=== PATIENT | female | born 1940 | race Caucasian/White ===

== ENCOUNTER 2017-03-08 14:45 | Inpatient (IN) | payer MEDICARE, OTHER ==
[~2017-03-08] VITALS: Ht 172.7 cm; Wt 58.3 kg
[~2017-03-08 14:45] MED LIST changes: -CYCL10 PO; -Dazidox10 MG PO; -FURO40 PO; -Hair, Skin & N1 EACH PO; -METO25ER PO; -NITR.4SL SL; -Omeprazole20 M1 PO; -POTCHL20ER PO; -SERT100 PO
[2017-03-08] MEDS ORDERED: ASPI325 PO (15:16)
[2017-03-08] MEDS ORDERED: ALPR1 PO (15:16)
[2017-03-08] MEDS ORDERED: LEVSOD50 PO (15:16)
[2017-03-08] MEDS ORDERED: ATOR40TA PO (15:16)
[2017-03-08] MEDS ORDERED: MAGOXI400 PO (15:17)
[2017-03-08] MEDS ORDERED: METO25ER PO (15:17)
[2017-03-08] MEDS ORDERED: Omeprazole20 M1 PO (15:17)
[2017-03-08] MEDS ORDERED: Dazidox10 MG PO (15:18)
[2017-03-08] MEDS ORDERED: CLOP75 PO (15:18)
[2017-03-08] MEDS ORDERED: SERT100 PO (15:19)
[2017-03-08] MEDS ORDERED: LISI5 PO (15:19)
[2017-03-08 15:43] LABS: BASOPHILS ABSOLUTE AUTO 0.02 K/mm3 (0.00-0.23); BASOPHILS PERCENT AUTO 0 % (0-2); EOSINOPHILS ABSOLUTE AUTO 0.11 K/mm3 (0.00-0.68); EOSINOPHILS PERCENT AUTO 1 % (0-6); Hematocrit 34.8 % (33.0-51.0); Hemoglobin 11.1 g/dL (11.5-16.0); IMMATURE GRAN ABSOLUTE AUTO 0.03 K/mm3 (0.00-0.10); IMMATURE GRAN PERCENT AUTO 0 % (0-1); LYMPHOCYTES ABSOLUTE AUTO 1.36 K/mm3 (0.84-5.20); LYMPHOCYTES PERCENT AUTO 16 % (21-46); MONOCYTES ABSOLUTE AUTO 0.67 K/mm3 (0.16-1.47); MONOCYTES PERCENT AUTO 8 % (4-13); Mean Corpuscular HGB 29.8 pg (26.0-34.0); Mean Corpuscular HGB Conc 31.9 g/dL (31.5-36.5); Mean Corpuscular Volume 93 fL (80-100); Mean Platelet Volume 10.8 fL (9.1-12.4); NEUTROPHILS ABSOLUTE AUTO 6.13 K/mm3 (1.96-9.15); NEUTROPHILS PERCENT AUTO 74 % (41-73); Platelet Count 319 K/mm3 (150-400); RDW Coefficient Variation 13.9 % (11.7-14.2); RDW Standard Deviation 46.9 fL (35.1-46.3); Red Blood Cell Count 3.73 M/mm3 (3.80-5.20); White Blood Cell Count 8.32 K/mm3 (4.00-11.30)
[2017-03-08 16:05] LABS: Bilirubin, Total 0.5 mg/dL (0.1-1.0); Bun/Creatinine Ratio 11.8 (12.0-20.0); Calcium, Blood 9.2 mg/dL (8.5-10.1); Creatinine, Blood 1.02 mg/dL (0.40-1.00); Globulin, Blood 4.1 g/dL (2.2-4.0); Potassium, Blood 3.8 mmol/L (3.5-5.5); Total Protein, Blood 8.1 g/dL (6.4-8.2)
[2017-03-08 16:38] LABS: Troponin I 0.58 ng/mL (0.000-0.040)
[2017-03-09 04:08] LABS: BASOPHILS ABSOLUTE AUTO 0.03 K/mm3 (0.00-0.23); BASOPHILS PERCENT AUTO 0 % (0-2); EOSINOPHILS ABSOLUTE AUTO 0.17 K/mm3 (0.00-0.68); EOSINOPHILS PERCENT AUTO 2 % (0-6); Hematocrit 33.5 % (33.0-51.0); Hemoglobin 10.6 g/dL (11.5-16.0); IMMATURE GRAN ABSOLUTE AUTO 0.02 K/mm3 (0.00-0.10); IMMATURE GRAN PERCENT AUTO 0 % (0-1); LYMPHOCYTES ABSOLUTE AUTO 2.19 K/mm3 (0.84-5.20); LYMPHOCYTES PERCENT AUTO 29 % (21-46); MONOCYTES ABSOLUTE AUTO 0.69 K/mm3 (0.16-1.47); MONOCYTES PERCENT AUTO 9 % (4-13); Mean Corpuscular HGB 29.8 pg (26.0-34.0); Mean Corpuscular HGB Conc 31.6 g/dL (31.5-36.5); Mean Corpuscular Volume 94 fL (80-100); Mean Platelet Volume 10.3 fL (9.1-12.4); NEUTROPHILS PERCENT AUTO 59 % (41-73); Platelet Count 257 K/mm3 (150-400); RDW Coefficient Variation 13.9 % (11.7-14.2); RDW Standard Deviation 47.9 fL (35.1-46.3); Red Blood Cell Count 3.56 M/mm3 (3.80-5.20)
[2017-03-09 04:46] LABS: Calcium, Blood 8.2 mg/dL (8.5-10.1); Creatinine, Blood 1.13 mg/dL (0.40-1.00); Potassium, Blood 3.3 mmol/L (3.5-5.5)
[2017-03-10 05:15] LABS: BASOPHILS ABSOLUTE AUTO 0.02 K/mm3 (0.00-0.23); BASOPHILS PERCENT AUTO 0 % (0-2); EOSINOPHILS ABSOLUTE AUTO 0.15 K/mm3 (0.00-0.68); EOSINOPHILS PERCENT AUTO 2 % (0-6); Hematocrit 35.7 % (33.0-51.0); Hemoglobin 11.3 g/dL (11.5-16.0); IMMATURE GRAN ABSOLUTE AUTO 0.01 K/mm3 (0.00-0.10); IMMATURE GRAN PERCENT AUTO 0 % (0-1); LYMPHOCYTES ABSOLUTE AUTO 1.35 K/mm3 (0.84-5.20); LYMPHOCYTES PERCENT AUTO 21 % (21-46); MONOCYTES ABSOLUTE AUTO 0.54 K/mm3 (0.16-1.47); MONOCYTES PERCENT AUTO 9 % (4-13); Mean Corpuscular HGB 29.7 pg (26.0-34.0); Mean Corpuscular HGB Conc 31.7 g/dL (31.5-36.5); Mean Corpuscular Volume 94 fL (80-100); Mean Platelet Volume 10.2 fL (9.1-12.4); NEUTROPHILS ABSOLUTE AUTO 4.26 K/mm3 (1.96-9.15); NEUTROPHILS PERCENT AUTO 67 % (41-73); Platelet Count 261 K/mm3 (150-400); RDW Coefficient Variation 13.8 % (11.7-14.2); RDW Standard Deviation 47.4 fL (35.1-46.3); White Blood Cell Count 6.33 K/mm3 (4.00-11.30)
[2017-03-10 05:36] LABS: Bun/Creatinine Ratio 16.5 (12.0-20.0); Calcium, Blood 8.6 mg/dL (8.5-10.1); Creatinine, Blood 1.21 mg/dL (0.40-1.00); Potassium, Blood 4.1 mmol/L (3.5-5.5)
[2017-03-10] MEDS ORDERED: LEVO750 PO (12:29)
[2017-03-10] MEDS ORDERED: FURO40 PO (12:29)
[2017-03-10] MEDS ORDERED: POTCHL20ER PO (12:30)
[2017-03-10] MEDS ORDERED: NITR.4SL SL (12:30)
[2017-03-10] MEDS ORDERED: ALBU90OI INH (12:31)
[2017-10-19] MEDS ORDERED: CYCL10 PO (14:27)
[2017-10-19] MEDS ORDERED: Hair, Skin & N1 EACH PO (14:27)
[2017-10-19] MEDS ORDERED: CLOP75 PO (14:27)
== END 2017-03-10 13:10 | disposition home or self-care (01) | DRG 193 ==
LOC: ER 14:45 → MEDS 16:05 → ENPENDDIS 03-10 11:08 → MEDS 03-10 13:10
PROVIDERS: Emergency Medicine; Family Medicine
DX: J18.9 Pneumonia, unspecified organism (principal); I50.33 Acute on chronic diastolic (congestive) heart failure; J44.0 Chronic obstructive pulmonary disease with (acute) lower respiratory infection; J98.11 Atelectasis; Y95 Nosocomial condition; I25.10 Atherosclerotic heart disease of native coronary artery without angina pectoris; I25.2 Old myocardial infarction; I11.0 Hypertensive heart disease with heart failure; K21.9 Gastro-esophageal reflux disease without esophagitis; F41.9 Anxiety disorder, unspecified; E78.5 Hyperlipidemia, unspecified; K22.70 Barrett's esophagus without dysplasia; I73.9 Peripheral vascular disease, unspecified; I73.00 Raynaud's syndrome without gangrene; Z66 Do not resuscitate; R09.02 Hypoxemia; E03.9 Hypothyroidism, unspecified; Z95.5 Presence of coronary angioplasty implant and graft; Z95.1 Presence of aortocoronary bypass graft; Z79.82 Long term (current) use of aspirin; Z79.02 Long term (current) use of antithrombotics/antiplatelets; Z79.899 Other long term (current) drug therapy; Z87.891 Personal history of nicotine dependence; E87.6 Hypokalemia; Z88.8 Allergy status to other drugs, medicaments and biological substances
CPT/HCPCS: 36415; 71046; 80048; 80053; 82550; 83605; 83880; 84439; 84443; 84484; 85025; 85379; 87040; 87070; 87205; 93005; 93010; 96365; 99285; J0456; J0692; J1650; J7030; J7050

== ENCOUNTER → 2017-03-08 | Outpatient (CLI) | payer MEDICARE, OTHER ==
[~2017-03-08] MED LIST: ACET500; ALBU90OI INH; ALPR1 PO; AMLO5 PO; ASPI325 PO; ATOR40TA PO; CENTRUM SILVER1 EAC2 PO; CITA20 PO; CLOP75 PO; CYCL10 PO; Calcarb 600 W-1 EACH PO; Dazidox10 MG PO; Ensure Plus237 ML PO; FIBE4P PO; FISH OIL 1,0001 EAC1 PO; FURO40 PO; Fish Oil500 M1 PO; GUAI600T33 PO; Hair, Skin & N1 EACH PO; LAVAP17G PO; LEVO750 PO; LEVSOD100 PO; LEVSOD50 PO; LISI5 PO; MAGOXI400 PO; METO25 PO; METO25ER PO; NIFE30ER PO; NITR.4SL SL; Nitroglycerin0.4 MG SL; OMEP40CA12 PO; OMEPRAZOLE MAGN20 MG PO; OXYC10ER PO; OXYC10TA19; OXYC10TA19 PO; Omeprazole20 M1 PO; POTCHL20ER PO; RANI150 PO; SACC250C PO; SERT100 PO; SERT50 PO; TIOT18 INH; Vitamin D2000 UNIT PO
[2017-03-08 13:58] LABS: BASOPHILS ABSOLUTE AUTO 0.05 K/mm3 (0.00-0.23); BASOPHILS PERCENT AUTO 1 % (0-2); EOSINOPHILS ABSOLUTE AUTO 0.12 K/mm3 (0.00-0.68); EOSINOPHILS PERCENT AUTO 1 % (0-6); Hematocrit 33.9 % (33.0-51.0); Hemoglobin 11.1 g/dL (11.5-16.0); IMMATURE GRAN ABSOLUTE AUTO 0.05 K/mm3 (0.00-0.10); IMMATURE GRAN PERCENT AUTO 1 % (0-1); LYMPHOCYTES ABSOLUTE AUTO 1.17 K/mm3 (0.84-5.20); LYMPHOCYTES PERCENT AUTO 14 % (21-46); MONOCYTES ABSOLUTE AUTO 0.63 K/mm3 (0.16-1.47); MONOCYTES PERCENT AUTO 7 % (4-13); Mean Corpuscular HGB 30.5 pg (26.0-34.0); Mean Corpuscular HGB Conc 32.7 g/dL (31.5-36.5); Mean Corpuscular Volume 93 fL (80-100); Mean Platelet Volume 10.5 fL (9.1-12.4); NEUTROPHILS ABSOLUTE AUTO 6.67 K/mm3 (1.96-9.15); NEUTROPHILS PERCENT AUTO 77 % (41-73); Platelet Count 273 K/mm3 (150-400); RDW Coefficient Variation 13.6 % (11.7-14.2); RDW Standard Deviation 45.9 fL (35.1-46.3); Red Blood Cell Count 3.64 M/mm3 (3.80-5.20); White Blood Cell Count 8.69 K/mm3 (4.00-11.30)
[2017-03-08 14:19] LABS: Bun/Creatinine Ratio 10.5 (12.0-20.0); Calcium, Blood 9.6 mg/dL (8.5-10.1); Creatinine, Blood 1.14 mg/dL (0.40-1.00); Free Thyroxine 1.18 ng/dL (0.70-1.60); Potassium, Blood 4.4 mmol/L (3.5-5.5); Thyroid Stimulating Hormone 5.414 uIU/mL (0.360-4.800); Troponin I 0.577 ng/mL (0.000-0.040)
== END ==
LOC: LAB SHORT 13:54
PROVIDERS: General Practice
DX: R06.02 Shortness of breath (principal); R53.81 Other malaise
CPT/HCPCS: 80048; 82550; 83880; 84439; 84443; 84484; 85025

== ENCOUNTER 2017-10-27 08:05 | Day surgery (SDC) | payer MEDICARE, OTHER ==
[~2017-10-27] VITALS: Ht 172.7 cm; Wt 57.1 kg
[~2017-10-27 08:05] MED LIST changes: +CYCL10 PO; +Dazidox10 MG PO; +FURO40 PO; +Hair, Skin & N1 EACH PO; +METO25ER PO; +NITR.4SL SL; +Omeprazole20 M1 PO; +POTCHL20ER PO; +SERT100 PO
[2017-10-27 10:36] LABS: BASOPHILS ABSOLUTE AUTO 0.02 K/mm3 (0.00-0.23); BASOPHILS PERCENT AUTO 0 % (0-2); EOSINOPHILS ABSOLUTE AUTO 0.12 K/mm3 (0.00-0.68); EOSINOPHILS PERCENT AUTO 2 % (0-6); Hematocrit 37.4 % (33.0-51.0); Hemoglobin 12.1 g/dL (11.5-16.0); IMMATURE GRAN ABSOLUTE AUTO 0.02 K/mm3 (0.00-0.10); IMMATURE GRAN PERCENT AUTO 0 % (0-1); LYMPHOCYTES ABSOLUTE AUTO 1.73 K/mm3 (0.84-5.20); LYMPHOCYTES PERCENT AUTO 28 % (21-46); MONOCYTES ABSOLUTE AUTO 0.46 K/mm3 (0.16-1.47); MONOCYTES PERCENT AUTO 8 % (4-13); Mean Corpuscular HGB 30.3 pg (26.0-34.0); Mean Corpuscular HGB Conc 32.4 g/dL (31.5-36.5); Mean Corpuscular Volume 94 fL (80-100); Mean Platelet Volume 10.4 fL (9.1-12.4); NEUTROPHILS ABSOLUTE AUTO 3.74 K/mm3 (1.96-9.15); NEUTROPHILS PERCENT AUTO 61 % (41-73); Platelet Count 223 K/mm3 (150-400); RDW Coefficient Variation 12.5 % (11.7-14.2); RDW Standard Deviation 43.2 fL (35.1-46.3); White Blood Cell Count 6.09 K/mm3 (4.00-11.30)
== END 2017-10-27 22:43 | disposition home or self-care (01) ==
LOC: ORSCMMR 08:05 → ORD 09:00 → ORSCMMR 09:00
PROVIDERS: Surgery
PROC: 0WUF0JZ Supplement Abdominal Wall with Synthetic Substitute, Open Approach (ICD-10-PCS; principal; 2017-10-27 09:00)
DX: K43.9 Ventral hernia without obstruction or gangrene (principal); I12.9 Hypertensive chronic kidney disease with stage 1 through stage 4 chronic kidney disease, or unspecified chronic kidney disease; N18.3 Chronic kidney disease, stage 3 (moderate); E03.9 Hypothyroidism, unspecified; E78.5 Hyperlipidemia, unspecified; F41.8 Other specified anxiety disorders; J44.9 Chronic obstructive pulmonary disease, unspecified; I25.10 Atherosclerotic heart disease of native coronary artery without angina pectoris; Z87.891 Personal history of nicotine dependence; Z79.01 Long term (current) use of anticoagulants; Z79.82 Long term (current) use of aspirin; Z79.899 Other long term (current) drug therapy
CPT/HCPCS: 85025; C1781; J0690; J1100; J1885; J2250; J2405; J3010; J7030; J7120

== ENCOUNTER 2018-03-04 00:49 | Day surgery (SDC) | payer MEDICARE, OTHER ==
[~2018-03-04] VITALS: Ht 172.7 cm; Wt 56.0 kg
[~2018-03-04 00:49] MED LIST changes: +ALBU90OI61 INH; +CHOL10002 PO; +NIFE60ER PO
--- NOTE | 2018-03-04 12:30 | NUR ---
MEDICATION: I WAS CHECKING ON PT I SAW THE PT'S SPOUSE HAND HER SOMETHING AND THE PT TOOK IT PO WITH WATER. I ASKED WHAT THE PT WAS TAKING AND SHE STATED: "A PAIN PILL THAT IS PRESCIBED TO ME THAT I CAN TAKE 5 TIMES DAILY". I ASKED THAT SHE NOT TAKE ANY OTHER HOME MEDICATIONS AND ASK IF SHE NEEDED SOMETHING FOR PAIN WE HAD MEDICATIONS AVAILABLE. 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
--- NOTE | 2018-03-04 15:31 | NUR ---
DISCHARGE 1440 DR. GREGG IN TO SEE PT. 1530 PT REMAINED A&OX3 AND DENIED ANY PAIN OTHER THAN A LITTLE DISCOMFORT IN HER BACK RELIEVED BY REPOSITIONING WITH ASSISTANCE. BILATERAL GROIN SITES REMIAINS CDI-NO HEMATOMA NOTED. IV DC'D WITH TIP IN TACT. PT UP TO RESTROOM WITH SBA HELP-STEADY GAIT. PT ABLE TO DRESS SELF WITH LITTLE ASSISTANCE FROM HER SPOUSE. DISCHARG PAPERWORK GONE OVER WITH PT AND SPOUSE. PT AND SPOUSE STATED THE UNDERSTANDING OF THE DISCHARGE EDUCATION AND DENIED ANY QUESTIONS AT THIS TIME. PAPERWORK PLACED IN PT'S PROCEDURE BINDER. PT WHEELED OUT BY THIS NURSE TO PERSONAL CAR.
== END 2018-03-04 15:30 | disposition home or self-care (01) ==
LOC: MHTC 00:49
DX: I73.9 Peripheral vascular disease, unspecified (principal); Z88.8 Allergy status to other drugs, medicaments and biological substances
CPT/HCPCS: 37220; 37226; 75625; 75710; 75716; 76937; 85347; 99152; 99153; C1725; C1760; C1769; C1876; C1887; C1894; C2623; J1644; J2250; J3010; J7030; J7040; Q9967

== ENCOUNTER 2018-04-07 10:54 | Observation (INO) | payer MEDICARE, OTHER ==
[~2018-04-07] VITALS: Ht 172.7 cm; Wt 59.4 kg
--- NOTE | 2018-04-07 18:05 | NUR ---
NURSING PCU DAYSHIFT SUMMARY: Assumed care of pt at approx 1720. Arrived from via bed accompanied by RN and tech, s/o at bedside. Pt oriented to unit and recovery plan discussed, pt and s/o verbalized understanding. Pt is resting comfortably at this time, HOB 30 degrees, LUE in sling. L femoral access site appears stable, dressing intact, LUE dressing site saturated w/blood at time of arrival, no noted change, areas remain soft. Pt and s/o deny any questions needs at this time. PIV x2, s/l. Plan for discharge home in the a.m. Call light reamins in reach. Cont to monitor until rpt is given to ALECIA RN.
[2018-04-08 04:35] LABS: Hematocrit 25.1 % (33.0-51.0); Mean Corpuscular HGB 30.2 pg (26.0-34.0); Mean Corpuscular HGB Conc 31.9 g/dL (31.5-36.5); Mean Corpuscular Volume 95 fL (80-100); Mean Platelet Volume 9.5 fL (9.1-12.4); Platelet Count 155 K/mm3 (150-400); RDW Coefficient Variation 13.2 % (11.7-14.2); RDW Standard Deviation 45.7 fL (35.1-46.3); Red Blood Cell Count 2.65 M/mm3 (3.80-5.20); White Blood Cell Count 8.54 K/mm3 (4.00-11.30)
--- NOTE | 2018-04-08 06:59 | NUR ---
SHIFT SUMMARY PATIENT PLEASENT THROUGHOUT THE NIGHT. PATIENT EDUCATED ON IMPORTANCE OF POST PROCEDURES ACTIVITY AND MOVEMENT RESTRICTIONS, HOWEVER PATIENT WAS NOT VERY COMPLIENT AND NEEDED FREQUENT REMINDERS THROUGHOUT THE NIGHT. PATIENT UP TO THE BSC X 1 BUT STATED THAT SHE FELT EXTREMALLY WEAK AFTER. PATIENT USED THE BEDPAN THROUGHOUT THE REST OF THE NIGHT. REPORT GIVEN TO ONCOMING RN
--- NOTE | 2018-04-08 07:29 | NUR ---
NURSING PCU DAYSHIFT: Assumed care of pt at approx 0700. A/O, pleasant, fairly cooperative w/care. Denies any pain. Skin is fairly intact w/insertion sites present in LUE and L groin r/t peripheral procedure, sites appear stable w/mild brusing, no bleed or hematoma noted, L arm soft sling in place. 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 Tele in place, NSR w/PVC's, no c/o CP/pressure, BP stable, no noted edema. L/S cta t/o, O2 sat upper 90's on RA, denies dyspnea, no noted cough. Abd SNT, BT+, voiding w/o difficulty per pt. PIV x2, s/l. No s/s of acute distress at this time. Pt is anticpating discharge home. Awaiting rounding from woodworking machine feeder, call light in reach, cont to monitor for any changes.
--- NOTE | 2018-04-08 12:55 | NUR ---
NURSING PCU DISCHARGE SUMMARY: No acute changes noted t/o the shift. Seen by photographic platemaker, discharge home d/o received. Pt and spouse verbalized understanding of all written and verbal discharge instructions provided by photographic platemaker and RN. PIV's dc'd w/caths intact, will escort from the unit via w/c accompanied by escort services. Cont to monitor until discharge is completed.
== END 2018-04-08 12:58 | disposition home or self-care (01) ==
LOC: MHTC 10:54 → PCU 17:06 → MHTC 17:11 → PCU 04-08 12:58
PROVIDERS: ADMIT Radiology Diagnostic Radiology
DX: I73.9 Peripheral vascular disease, unspecified (principal); R23.9 Unspecified skin changes; R06.02 Shortness of breath; R53.83 Other fatigue; E78.5 Hyperlipidemia, unspecified; E03.9 Hypothyroidism, unspecified; K21.9 Gastro-esophageal reflux disease without esophagitis; I12.9 Hypertensive chronic kidney disease with stage 1 through stage 4 chronic kidney disease, or unspecified chronic kidney disease; N18.3 Chronic kidney disease, stage 3 (moderate); F11.20 Opioid dependence, uncomplicated; Z98.890 Other specified postprocedural states; Z79.02 Long term (current) use of antithrombotics/antiplatelets; Z79.899 Other long term (current) drug therapy; Z88.8 Allergy status to other drugs, medicaments and biological substances; Z87.891 Personal history of nicotine dependence
CPT/HCPCS: 36200; 36415; 37227; 75625; 75710; 75716; 75774; 85027; 85347; 99152; 99153; C1714; C1725; C1760; C1769; C1876; C1884; C1887; C1894; C2623; G0378; J1644; J2250; J3010; J7030; J7040; Q9967

== ENCOUNTER → 2018-05-17 | Outpatient (CLI) | payer MEDICARE, OTHER | END | disposition home or self-care (01) | LOC: LAB SHORT 13:58 → PLD 13:58 | DX: L30.8 Other specified dermatitis (principal) | CPT/HCPCS: 88305; 88312 ==

== ENCOUNTER 2019-11-10 10:09 | Day surgery (SDC) | payer MEDICARE, OTHER ==
[~2019-11-10] VITALS: Ht 172.7 cm; Wt 57.7 kg
[~2019-11-10 10:09] MED LIST changes: +ALDACTONE25 MG PO; +Aspir 8181 MG; +Isosorbide Mono30 MG PO; +LOSA25 PO; +Lisinopril2.5 MG PO; +PROAIR DIGIHAL90 MCG; +PROLIA60 MG/1 ML SQ
[2019-11-10] MEDS ORDERED: COENZYME Q10100 MG PO (10:59)
== END 2019-11-10 12:12 | disposition home or self-care (01) ==
LOC: ORSCSDS 10:09
PROVIDERS: Internal Medicine Gastroenterology
PROC: 0DB58ZX Excision of Esophagus, Via Natural or Artificial Opening Endoscopic, Diagnostic (ICD-10-PCS; principal; 2019-11-10 11:30)
PROC: 0DB98ZX Excision of Duodenum, Via Natural or Artificial Opening Endoscopic, Diagnostic (ICD-10-PCS; principal; 2019-11-10 11:30)
PROC: 0DB68ZX Excision of Stomach, Via Natural or Artificial Opening Endoscopic, Diagnostic (ICD-10-PCS; principal; 2019-11-10 11:30)
DX: R10.9 Unspecified abdominal pain (principal); K29.70 Gastritis, unspecified, without bleeding; K22.70 Barrett's esophagus without dysplasia; I10 Essential (primary) hypertension; E03.9 Hypothyroidism, unspecified; Z87.891 Personal history of nicotine dependence; Z79.899 Other long term (current) drug therapy; Z79.01 Long term (current) use of anticoagulants
CPT/HCPCS: 88305; 88342; J2704; J7120

== ENCOUNTER → 2019-11-22 | Outpatient (CLI) | payer MEDICARE, OTHER ==
[~2019-11-22] MED LIST changes: +COENZYME Q10100 MG PO
[2019-11-23 13:34] LABS: Candida species (DNA Probe) Negative (NEGATIVE); G. vaginalis (DNA Probe) Negative (NEGATIVE); T. vaginalis (DNA Probe) Negative (NEGATIVE)
== END | disposition home or self-care (01) ==
LOC: LAB 19:42 → LAB SHORT 19:42
PROVIDERS: Internal Medicine
DX: N76.0 Acute vaginitis (principal)
CPT/HCPCS: 87480; 87510; 87660

== ENCOUNTER → 2021-01-01 | Outpatient (CLI) | payer MEDICARE ==
[2021-01-01 16:24] LABS: Adenovirus F 40/41 Not Detected (NOT DETECT); Astrovirus Not Detected (NOT DETECT); Campylobacter Sp Not Detected (NOT DETECT); Cryptosporidium Not Detected (NOT DETECT); Cyclospora Cayetanensis Not Detected (NOT DETECT); E. Coli O157 Not Detected (NOT DETECT); Entamoeba Histolytica Not Detected (NOT DETECT); Enteroaggregative E. coli-EAEC Not Detected (NOT DETECT); Enteropathogenic E. coli-EPEC Not Detected (NOT DETECT); Enterotoxigenic E. coli-ETEC Not Detected (NOT DETECT); Giardia Lamblia Not Detected (NOT DETECT); Norovirus GI/GII Not Detected (NOT DETECT); Plesiomonas Shigelloides Not Detected (NOT DETECT); Rotavirus A Not Detected (NOT DETECT); Salmonella Sp Not Detected (NOT DETECT); Sapovirus Not Detected (NOT DETECT); Shiga Toxin-prod E. coli-STEC Not Detected (NOT DETECT); Shigella/Enteroin E. coli-EIEC Not Detected (NOT DETECT); Vibrio Cholerae Not Detected (NOT DETECT); Vibrio Sp Not Detected (NOT DETECT); Yersinia Enterocolitica Not Detected (NOT DETECT)
== END | disposition home or self-care (01) ==
LOC: LAB SHORT 11:00 → LAB 11:00
PROVIDERS: Family Medicine
DX: K29.70 Gastritis, unspecified, without bleeding (principal); R19.7 Diarrhea, unspecified
CPT/HCPCS: 0097U; 87338

== ENCOUNTER 2021-03-28 13:59 | Inpatient (IN) | payer MEDICARE, OTHER ==
[~2021-03-28] VITALS: Ht 172.7 cm; Wt 56.9 kg
[~2021-03-28 13:59] MED LIST changes: -CHOL10002 PO; -Dazidox10 MG PO; +EUTHYROX50 MCG PO; +MAGNESIUM OXID500 MG PO; +OXYC5 PO; +VITAMIN D310 MC4 PO
[2021-03-28 14:28] LABS: BASOPHILS ABSOLUTE AUTO 0.03 K/mm3 (0.00-0.23); BASOPHILS PERCENT AUTO 0 % (0-2); EOSINOPHILS ABSOLUTE AUTO 0.05 K/mm3 (0.00-0.68); EOSINOPHILS PERCENT AUTO 1 % (0-6); Hemoglobin 11.8 g/dL (11.5-16.0); IMMATURE GRAN ABSOLUTE AUTO 0.02 K/mm3 (0.00-0.10); IMMATURE GRAN PERCENT AUTO 0 % (0-1); LYMPHOCYTES ABSOLUTE AUTO 1.13 K/mm3 (0.84-5.20); LYMPHOCYTES PERCENT AUTO 14 % (21-46); MONOCYTES ABSOLUTE AUTO 0.49 K/mm3 (0.16-1.47); MONOCYTES PERCENT AUTO 6 % (4-13); Mean Corpuscular HGB 29.6 pg (26.0-34.0); Mean Corpuscular HGB Conc 31.9 g/dL (31.5-36.5); Mean Corpuscular Volume 93 fL (80-100); Mean Platelet Volume 9.7 fL (9.1-12.4); NEUTROPHILS ABSOLUTE AUTO 6.41 K/mm3 (1.96-9.15); NEUTROPHILS PERCENT AUTO 79 % (41-73); Platelet Count 201 K/mm3 (150-400); RDW Coefficient Variation 13.2 % (11.7-14.2); RDW Standard Deviation 45.1 fL (35.1-46.3); Red Blood Cell Count 3.99 M/mm3 (3.80-5.20); White Blood Cell Count 8.13 K/mm3 (4.00-11.30)
[2021-03-28] MEDS ORDERED: CYCL10 PO (14:37)
[2021-03-28] MEDS ORDERED: FISH OIL 1,2001 EAC7 PO (14:38)
[2021-03-28] MEDS ORDERED: FURO20 PO (14:39)
[2021-03-28] MEDS ORDERED: NIFE60ER PO (14:42)
[2021-03-28] MEDS ORDERED: PANT40 PO (14:43)
[2021-03-28] MEDS ORDERED: ENTRESTO 24 MG1 EACH PO (14:44)
[2021-03-28 14:48] LABS: Alanine Aminotransfer (ALT/SGP 15 U/L (12-78); Albumin, Blood 3.9 g/dL (3.4-5.0); Albumin/Globulin Ratio 1.1 (0.8-1.8); Alk Phos 48 U/L (50-136); Anion Gap 8 mmol/L (6-16); Aspartate Aminotrans (AST/SGOT 19 U/L (12-37); Bilirubin, Total 0.6 mg/dL (0.1-1.0); Blood Urea Nitrogen 24 mg/dL (8-24); Bun/Creatinine Ratio 21.8 (12.0-20.0); CO2, Blood 26 mmol/L (21-32); Calcium, Blood 9.3 mg/dL (8.5-10.1); Chloride, Blood 101 mmol/L (98-108); Globulin, Blood 3.4 g/dL (2.2-4.0); Glomerular Filtration Rate 48 (60-); Glucose, Blood 125 mg/dL (70-99); Potassium, Blood 4.1 mmol/L (3.5-5.5); Sodium, Blood 135 mmol/L (136-145); Total Protein, Blood 7.3 g/dL (6.4-8.2); Troponin I <0.015 ng/mL (0.000-0.040)
--- NOTE | 2021-03-28 19:11 | NUR ---
TRANSFER UPDATE PT ARRIVED TO UNIT AT 1824 VIA GURNY AND OCCOMPANIED BY 1 RN. REPORT WAS RECIEVED AD 1809 FROM ER NURSE. PT ABLE TO TRANSFER SELF FROM GURNEY TO BED WITH MINIMAL ASSISTANCE. PT ON RA UPON ARRIVAL. NO REPORT OF CHEST PAIN/PRESSURE AT THIS TIME.
--- NOTE | 2021-03-29 05:38 | NUR ---
SIZING MACHINE TENDER SUMMARY PT IS AXO X4. PT HAS REPORTED VERY MILD INTERMITTANT CHEST PAIN THAT SEEMS TO INCREASE W AMBULATION. 0000 TROPONIN CAME BACK AT 3.8 SO PROVIDER CONTACTED AND ORDERS FOR HEPARIN AND PLAVIX OBTAINED. BP WNL AND STABLE THIS SHIFT. O2 SATS >92% ON RM AIR THIS SHIFT. PT SLEPT COMFORTABLY FOR MOST OF THE SHIFT. PT NPO SINCE MIDNIGHT FOR POSSIBLE PROCEDURE. WILL REPORT TO ONCOMING RN.
--- NOTE | 2021-03-29 09:35 | NUR ---
CRITICAL VALUE UPDATE CRITICAL TROPONIN VALUE OF 4.22 CALLED IN FROM LAB. CHARGE NURSE SARA NOTIFIED. PT WAITING FOR PROCEDURE IN GROUND INSTRUCTOR ADVANCED.
--- NOTE | 2021-03-29 10:58 | NUR ---
Upon receiving a referral for spiritual care, I visit patient. Patient immediately tells me about her strong Cheondoism adelso and also her current struggle as she works through the possibility of not surviving "these heart issues." She is tearful as she talks about her and daughter that she would leave behind. We then talk about her spiritual journey, her sources of meaning and purpose, and her will to push forward. I normalize patient's experience, reinforce helpful attitudes and practices and provide therapeutic listening, recitation of scripture, pastoral health counselor and prayer. Pt shows signs of being encouraged in her adelso and having a greater peace about her medical condition. Patient expresses much appreciation for the visit and states that she was uplifted by the conversation and prayer. I will continue to remain available to patient and family.
--- NOTE | 2021-03-29 15:56 | NUR ---
PATIENT BROUGHT TO THE [facility] RECOVERY ROOM POST CORONARY INTERVENTION, MID CIRC/PROX CIRC. SHEATH TO THE RFA IN PLACE BECAUSE THE ACT WAS 279. PLACED ON THE MONITOR AND PLACED ON THE BED [place]HAM. VOIDED 300, KENDRA CARE DONE WITH LOG ROLL. BEAR HUGGER PLACED ON PATIENT AND GIVEN COFFEE TO DRINK. NO PAIN NOTED FROM THE PATIENT.
--- NOTE | 2021-03-29 16:19 | NUR ---
UPDATE PT LEFT UNIT FOR UPKEEP MECHANIC AT 1340 VIA HOSPITAL BED. PT WAS OCCOMPANIED BY 2 RN. PT ON RA. PT ATTEMPTED TO VOID PRIOR TO PROCEDURE.
--- NOTE | 2021-03-29 16:31 | NUR ---
ACT 237. REPORTED TO DR. SAXENA.
--- NOTE | 2021-03-29 17:10 | NUR ---
ACT 214, Dr. Cortez notified.
--- NOTE | 2021-03-29 17:23 | NUR ---
assumed patient care. patient A&O. right groin site soft and nontender. sheath in place to right femoral artery with pressure bag to side port.
--- NOTE | 2021-03-29 18:25 | NUR ---
30 MINUTES OF MANUAL PRESSURE TO RIGHT FEMORAL ARTERY BY CHARLOTTE CALVO. SITE SOFT AND NONTENDER. NO HEMATOMA. NO BLEEDING. DRESSING PLACED TO SITE. DP/PT PULSES 2+.
--- NOTE | 2021-03-29 18:38 | NUR ---
UPDATE PT ARRIVED TO UNIT FROM TREATING PLANT OPERATOR AT 1830 VIA HOSPITAL BED. PT ON . TONY GROIN SITE C/D/I. NO HEMOTOMA NOTED, NO TENDERNESS REPORTED.
--- NOTE | 2021-03-29 19:06 | NUR ---
SHIFT SUMMARY PT A/O X4 AND COOPERATIVE OF ARE. PT CALLS APPROPIATELY. VSS DURING PT TIME IN PCU WITH O2 SATS >94% ON RA. PT REMAINED NPO AWAITING PROCEDURE IN COMMODITY MANAGEMENT SPECIALIST. PT REPORTED CHEST PRESSURE AT 1330 PT WAS HEADED TO TOILET TO TRY TO URINATE PRIOR TO PROCEDURE, PT LEFT FOR COMMODITY MANAGEMENT SPECIALIST AT 1340. NO ACUTE CHANGES DURING SHIFT WHILE PT WAS IN PCU UNIT.
[2021-03-30 03:25] LABS: Hematocrit 35.2 % (33.0-51.0); Hemoglobin 11.1 g/dL (11.5-16.0); Mean Corpuscular HGB 29.3 pg (26.0-34.0); Mean Corpuscular HGB Conc 31.5 g/dL (31.5-36.5); Mean Corpuscular Volume 93 fL (80-100); Mean Platelet Volume 9.5 fL (9.1-12.4); Platelet Count 194 K/mm3 (150-400); RDW Coefficient Variation 13.2 % (11.7-14.2); RDW Standard Deviation 45.4 fL (35.1-46.3); Red Blood Cell Count 3.79 M/mm3 (3.80-5.20); White Blood Cell Count 7.99 K/mm3 (4.00-11.30)
[2021-03-30 04:15] LABS: Bun/Creatinine Ratio 15.2 (12.0-20.0); Calcium, Blood 8.1 mg/dL (8.5-10.1); Creatinine, Blood 1.05 mg/dL (0.40-1.00); Magnesium, Blood 2.3 mg/dL (1.6-2.4); Potassium, Blood 3.7 mmol/L (3.5-5.5)
--- NOTE | 2021-03-30 05:39 | NUR ---
AUDIO VISUAL FACILITIES ENGINEER SUMMARY PT IS AXO X4. PT HAS DENIED ANY CP OR PRESSURE THIS SHIFT. R GROIN SITE HAS SHOWN NO S/S OF BLEEDING OR HEMATOMA. STRONG PEDAL PULSES IN AFFECTED LEG. VSS AND O2 SATS >92% ON RM AIR. TELE SHOWING SR IN THE 60'S W PVC'S THIS SHIFT EXCEPT FOR ONE MOMENT THIS AM WHEN THE PT WAS AMBULATING OUT OF BED AND IT APPEARED THE PT HAS A WANDERING ATRIAL PACEMAKER RYTHYM WHICH THEN CHANGED BACK TO A SR ONCE THE PT WAS BACK IN BED, STRIP IN PT'S CHART. WILL REPORT TO ONCOMING RN.
--- NOTE | 2021-03-30 07:38 | NUR ---
Pt states she feels very weak this morning. She appears very weak as she was assisted up to the bedside commode. sTated unable to void. States that her back pain is not too bad this morning, but that she is constipated now for 4-5 days. Takes miralax, stool softener at home. Requesting that this morning. Noted some atrial fibrillation briefly on last night's tele strip, shown to me by jane Escobar. Right groin site dressing clean, dry, intact and site is without bruising, bleeding or swelling. Pt states some tenderness. Distal pulses on right foot are easily palpable, both feet are pink, warm. However, distal pulses on left foot had to be assessed with doppler. Pt then said that she has stents in both legs, but in one of them it is clogged.
[2021-03-30] MEDS ORDERED: CLOP75 PO (13:03)
== END 2021-03-30 14:00 | disposition home or self-care (01) | DRG 247 ==
LOC: ER 13:59 → ERHOLD 14:00 → PCU 18:30
PROVIDERS: Emergency Medicine; ADMIT Internal Medicine
PROC: B2111ZZ Fluoroscopy of Multiple Coronary Arteries using Low Osmolar Contrast (ICD-10-PCS; principal; 2021-03-29)
PROC: 027035Z Dilation of Coronary Artery, One Artery with Two Drug-eluting Intraluminal Devices, Percutaneous Approach (ICD-10-PCS; 2021-03-29)
PROC: B2181ZZ Fluoroscopy of Left Internal Mammary Bypass Graft using Low Osmolar Contrast (ICD-10-PCS; 2021-03-29)
DX: I21.4 Non-ST elevation (NSTEMI) myocardial infarction (principal); E03.9 Hypothyroidism, unspecified; E78.5 Hyperlipidemia, unspecified; Z95.1 Presence of aortocoronary bypass graft; K22.70 Barrett's esophagus without dysplasia; F41.9 Anxiety disorder, unspecified; Z98.890 Other specified postprocedural states; Z87.891 Personal history of nicotine dependence; Z79.899 Other long term (current) drug therapy
CPT/HCPCS: 36415; 71045; 80048; 80053; 83690; 83735; 84484; 85025; 85027; 85347; 85520; 93005; 93010; 93455; 94760; 96374; 99152; 99153; 99285-25; A9270; C1725; C1769; C1874; C1887; C1894; C9600; G0378; J1644; J2250; J3010; J7030; J7040; J7050; Q9967

== ENCOUNTER → 2021-04-16 | Outpatient (CLI) | payer MEDICARE, OTHER ==
[~2021-04-16] MED LIST changes: +ENTRESTO 24 MG1 EACH PO; +FISH OIL 1,2001 EAC7 PO; +FURO20 PO; +PANT40 PO
== END | disposition home or self-care (01) ==
LOC: LAB SHORT 18:12
DX: N39.0 Urinary tract infection, site not specified (principal)
CPT/HCPCS: 87086

== ENCOUNTER → 2021-10-18 | Outpatient (CLI) | payer MEDICARE, OTHER ==
[2021-10-18 18:31] LABS: Albumin, Blood 3.5 g/dL (3.4-5.0); Anion Gap 6 mmol/L (6-16); Blood Urea Nitrogen 13 mg/dL (8-24); Bun/Creatinine Ratio 12.9 (12.0-20.0); CO2, Blood 24 mmol/L (21-32); Calcium, Blood 9.1 mg/dL (8.5-10.1); Chloride, Blood 106 mmol/L (98-108); Creatinine, Blood 1.01 mg/dL (0.40-1.00); Glomerular Filtration Rate 56 (60-); Glucose, Blood 98 mg/dL (70-99); Phosphorus, Blood 2.7 mg/dL (2.5-4.9); Potassium, Blood 3.9 mmol/L (3.5-5.5); Sodium, Blood 136 mmol/L (136-145)
== END | disposition home or self-care (01) ==
LOC: LAB SHORT 17:21
PROVIDERS: Internal Medicine
DX: I50.22 Chronic systolic (congestive) heart failure (principal); E03.9 Hypothyroidism, unspecified
CPT/HCPCS: 80069; 83880; 84443

== ENCOUNTER 2022-10-09 14:52 | Inpatient (IN) | payer MEDICARE, OTHER | END 2022-10-12 13:37 | disposition home or self-care (01) | DRG 872 | LOC: ER 14:52 → PCU 14:53 → MEDS 10-10 17:44 | PROVIDERS: ADMIT Internal Medicine | DX: A41.51 Sepsis due to Escherichia coli [E. coli] (principal); I50.22 Chronic systolic (congestive) heart failure; J44.1 Chronic obstructive pulmonary disease with (acute) exacerbation; N39.0 Urinary tract infection, site not specified; I48.91 Unspecified atrial fibrillation; E03.9 Hypothyroidism, unspecified; Z66 Do not resuscitate; R73.9 Hyperglycemia, unspecified; K21.9 Gastro-esophageal reflux disease without esophagitis; G89.29 Other chronic pain; I11.0 Hypertensive heart disease with heart failure; F41.9 Anxiety disorder, unspecified; F41.8 Other specified anxiety disorders; E78.5 Hyperlipidemia, unspecified; I25.10 Atherosclerotic heart disease of native coronary artery without angina pectoris; B96.89 Other specified bacterial agents as the cause of diseases classified elsewhere; I73.00 Raynaud's syndrome without gangrene; Z86.79 Personal history of other diseases of the circulatory system; Z88.8 Allergy status to other drugs, medicaments and biological substances; Z79.51 Long term (current) use of inhaled steroids; Z79.890 Hormone replacement therapy; Z79.899 Other long term (current) drug therapy; Z79.891 Long term (current) use of opiate analgesic; Z79.82 Long term (current) use of aspirin; Z79.02 Long term (current) use of antithrombotics/antiplatelets; Z95.1 Presence of aortocoronary bypass graft; Z98.890 Other specified postprocedural states; Z87.891 Personal history of nicotine dependence ==

== ENCOUNTER 2024-06-10 16:24 | Emergency (ER) | payer MEDICARE ==
[~2024-06-10] VITALS: Ht 170.2 cm; Wt 46.7 kg
[~2024-06-10 16:24] MED LIST changes: -Aspir 8181 MG; +Aspir 8181 MG PO; +ELIQUIS2.5 MG PO; +EZETIMIBE10 M6 PO; +HYDR1TAB94 PO; +IPRAT-ALBUT 0.5-3 ML INH; +LIPITOR80 MG PO; +METOPROLOL SUCC25 MG PO; +PRED20 PO; +Q-Tussin100 MG/5 M PO; +Tessalon200 MG PO
[2024-06-10] MEDS ORDERED: Ipratropium/Albuterol SulF 2.5-0.5MG/3 ML Amp INH ONE (16:35)
[2024-06-10] MEDS ORDERED: NS 1,000 ML IV SCH (16:35)
[2024-06-10 16:57] LABS: BASOPHILS ABSOLUTE AUTO 0.01 K/mm3 (0.00-0.23); BASOPHILS PERCENT AUTO 0 % (0-2); EOSINOPHILS PERCENT AUTO 0 % (0-6); Hematocrit 36.6 % (33.0-51.0); Hemoglobin 12.3 g/dL (11.5-16.0); IMMATURE GRAN ABSOLUTE AUTO 0.02 K/mm3 (0.00-0.10); IMMATURE GRAN PERCENT AUTO 0 % (0-1); LYMPHOCYTES ABSOLUTE AUTO 0.98 K/mm3 (0.84-5.20); LYMPHOCYTES PERCENT AUTO 12 % (21-46); MONOCYTES PERCENT AUTO 6 % (4-13); Mean Corpuscular HGB 28.7 pg (26.0-34.0); Mean Corpuscular HGB Conc 33.6 g/dL (31.5-36.5); Mean Corpuscular Volume 86 fL (80-100); Mean Platelet Volume 9.2 fL (9.1-12.4); NEUTROPHILS ABSOLUTE AUTO 6.39 K/mm3 (1.96-9.15); NEUTROPHILS PERCENT AUTO 81 % (41-73); Platelet Count 205 K/mm3 (150-400); RDW Coefficient Variation 13.3 % (11.7-14.2); RDW Standard Deviation 42.2 fL (35.1-46.3); Red Blood Cell Count 4.28 M/mm3 (3.80-5.20)
[2024-06-10 17:25] LABS: Influenza B, PCR NEGATIVE (NEGATIVE); Resp Syncytial Virus, PCR NEGATIVE (NEGATIVE); SARS-Cov-2 (COVID-19) PCR, MMC NEGATIVE (NEGATIVE)
[2024-06-10 17:31] LABS: Albumin, Blood 3.5 g/dL (3.4-5.0); Bilirubin, Total 0.7 mg/dL (0.1-1.0); Bun/Creatinine Ratio 30.2 (12.0-20.0); Calcium, Blood 9.1 mg/dL (8.5-10.1); Creatinine, Blood 0.89 mg/dL (0.40-1.00); Globulin, Blood 3.5 g/dL (2.2-4.0); Potassium, Blood 3.7 mmol/L (3.5-5.5)
[2024-06-10 17:49] LABS: Influenza A, PCR POSITIVE (NEGATIVE)
[2024-06-10 20:07] LABS: Source, Urine Clean Catch
[2024-06-10 20:22] LABS: Appearance, Urine Clear (Clear); Bilirubin, Urine Neg (Neg); Blood, Urine 1+ (Neg); Color, Urine Yellow (P-Yellow); Glucose Qualitative, Urine Neg (Neg); Ketones, Urine 1+ (Neg); Leukocyte Esterase, Urine Neg (Neg); Nitrite, Urine Neg (Neg); Protein, Urine 2+ (Neg); Urobilinogen, Urine NORM (Normal)
[2024-06-10 20:28] VITALS: BP 164/88
[2024-06-10 20:38] LABS: Amorphous Light (0-Heavy); Bacteria Mod /hpf; Red Blood Cells, Urine 0-2 /hpf (0-2); Squamous Epithelial Cells Rare /hpf (Few); White Blood Cells, Urine 0-2 /hpf (0-5)
[2024-06-10] MEDS ORDERED: ACET500 PO (20:40)
[2024-06-10] MEDS ORDERED: MIRALAX17 GM PO (21:07)
== END 2024-06-10 20:55 | disposition home or self-care (01) ==
LOC: ER 16:24
PROVIDERS: Emergency Medicine
DX: J10.89 Influenza due to other identified influenza virus with other manifestations (principal); K62.89 Other specified diseases of anus and rectum; K59.00 Constipation, unspecified; J44.9 Chronic obstructive pulmonary disease, unspecified; K21.9 Gastro-esophageal reflux disease without esophagitis; E78.5 Hyperlipidemia, unspecified; E03.9 Hypothyroidism, unspecified; Z87.891 Personal history of nicotine dependence; Z79.899 Other long term (current) drug therapy; Z79.02 Long term (current) use of antithrombotics/antiplatelets; Z88.8 Allergy status to other drugs, medicaments and biological substances
CPT/HCPCS: 0241U; 71046; 74177; 80053; 81001; 83690; 83735; 85025; 93005; 93010; 94640; 94664; 96360-59; 99285-25; J7030; Q9967